=== PATIENT | female | born 1940 | race Caucasian/White ===

== ENCOUNTER 2024-09-16 07:36 | Outpatient (CLI) | payer MEDICARE | END 2024-09-16 07:37 | disposition home or self-care (01) | LOC: CSHMAMMO 07:36 | PROVIDERS: ATTEND Family Medicine | DX: Z78.0 Asymptomatic menopausal state (principal); M81.0 Age-related osteoporosis without current pathological fracture; M85.88 Other specified disorders of bone density and structure, other site | CPT/HCPCS: 77080 ==